=== PATIENT | male | born 1985 | race Caucasian/White ===

== ENCOUNTER → 2016-05-27 | Outpatient (CLI) | payer OTHER ==
[~2016-05-27] MED LIST: IOHEXOL 300 MG/ML 75 ML VIAL. IV ONE
--- NOTE | 2016-05-27 12:38 | RAD ---
Indication abdominal pain. Nausea vomiting diarrhea. Grayscale imaging through the abdomen and pelvis was performed. 75 cc of Omnipaque 300 was administered intravenously. No oral contrast was administered. No prior imaging is available. The lung bases are clear. A significant finding in the liver is not seen. There is a low-density 1 cm mass in the left lobe most compatible with an incidental cyst. Spleen appears unremarkable. The gallbladder appears grossly normal. There is a small, 14 mm, mass near the right adrenal gland. It is uncertain whether this reflects an exophytic cyst off the adrenal or an adrenal mass is so likely an incidental small adenoma the left kidney adrenal gland appear normal. No pancreatic pathology is seen. An acute finding in the abdomen is not apparent. The appendix is seen in the right lower quadrant and appears normal. There are occasional diverticula seen associated with the large bowel. These are most numerous in the sigmoid colon. Active inflammation is not seen. An acute finding in the pelvis is not apparent. IMPRESSION: No acute finding seen in the abdomen or pelvis. Normal appendix. Moderate large bowel diverticulosis. No evidence of diverticulitis Exophytic cyst versus right adrenal mass (if the latter likely reflecting an incidental adenoma)
== END | disposition home or self-care (01) ==
LOC: CT 11:52
DX: K37 Unspecified appendicitis (principal); K57.90 Diverticulosis of intestine, part unspecified, without perforation or abscess without bleeding; R19.7 Diarrhea, unspecified
CPT/HCPCS: 74177; Q9967